=== PATIENT | male | born 1995 ===

== ENCOUNTER 2021-03-30 10:56 | Emergency (ER) | payer SELFPAY ==
[~2021-03-30] VITALS: Ht 162.6 cm; Wt 59.1 kg
[2021-03-30 10:59] VITALS: BP 132/82; Ht 162.6 cm; Wt 59.1 kg
[2021-03-30] MEDS ORDERED: NAPROSYN500 MG PO (11:26)
== END 2021-03-30 11:34 | disposition home or self-care (01) ==
LOC: D.ER 10:56
DX: S63.501A Unspecified sprain of right wrist, initial encounter (principal); S63.91XA Sprain of unspecified part of right wrist and hand, initial encounter; X58.XXXA Exposure to other specified factors, initial encounter; Y93.67 Activity, basketball